=== PATIENT | female | born 1990 | race American Indian/Alaskan Native ===

== ENCOUNTER 2021-04-30 11:09 | Emergency (ER) | payer SELFPAY ==
[2021-04-30] MEDS ORDERED: IBUPROFEN 600 MG TAB PO ONE ×2 (13:25→16:18)
--- NOTE | 2021-04-30 13:25 | Emergency Department Report ---
ED Extremity Problem HPI - General Chief complaint: Extremity Injury, Lower Stated complaint: RT ANKLE INJURY Time Seen by Provider: 04/30/21 12:56 Source: patient Mode of arrival: Ambulatory Limitations: No Limitations - History of Present Illness Initial comments: 30-year-old female presents to the ER today complaining of right anterior ankle pain. Patient states that she woke up with the pain this morning. She reports associated mild swelling. She states that the pain is worse with movement of the ankle and with ambulation. 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 She states that she is never had any issues in the past with her ankle nor has had any surgeries. She states that she took a tylenol 500mg today but did not seem to help. She reports no apparent bruising, erythema, warmth, fever, chills, calf pain, chest pain, shortness of breath or any other symptoms at this time. MD Complaint: joint swelling, joint paint -: days(s) (1) - Related Data Previous Rx's Medication Instructions Recorded Last Taken Type Ibuprofen [Motrin 600 MG tab] 600 mg PO Q6HR PRN #30 tablet 04/30/21 Unknown Rx ED Review of Systems ROS: Stated complaint: RT ANKLE INJURY Other details as noted in HPI Comment: All other systems reviewed and negative Constitutional: denies: chills, fever Eyes: denies: eye pain, eye discharge, vision change ENT: denies: ear pain, throat pain, dental pain, hearing loss, epistaxis, congestion Respiratory: denies: cough, shortness of breath, SOB with exertion, SOB at rest, wheezing Cardiovascular: denies: chest pain, palpitations Gastrointestinal: denies: abdominal pain, nausea, diarrhea, constipation, hematemesis, hematochezia Musculoskeletal: joint swelling, arthralgia. denies: back pain Skin: denies: rash, lesions Neurological: denies: headache, weakness, numbness, paresthesias, confusion, abnormal gait, vertigo Psychiatric: denies: anxiety, depression, auditory hallucinations, visual hallucinations, homicidal thoughts, suicidal thoughts Hematological/Lymphatic: denies: easy bleeding, easy bruising ED Past Medical Hx - Past Medical History Previous Medical History?: Yes Additional medical history: denies - Surgical History Past Surgical History?: Yes Additional Surgical History: denies - Social History Smoking Status: Never Smoker Substance Use Type: Alcohol - Medications Home Medications: Home Medications Medication Instructions Recorded Confirmed Last Taken Type Ibuprofen [Motrin 600 MG tab] 600 mg PO Q6HR PRN #30 tablet 04/30/21 Unknown Rx ED Physical Exam - General Limitations: No Limitations General appearance: alert, in no apparent distress - Head Head exam: Present: atraumatic, normocephalic, normal inspection - Eye Eye exam: Present: normal appearance, PERRL, EOMI Pupils: Present: normal accommodation - Neck Neck exam: Present: normal inspection, full ROM - Respiratory Respiratory exam: Absent: respiratory distress - Cardiovascular Cardiovascular Exam: Present: regular rate - Expanded Lower Extremity Exam Right Ankle exam: Present: normal inspection, full ROM (She has full range of motion of the right ankle but there it is mildly painful), tenderness (Tenderness to palpation mainly anterior aspect of the right ankle). Absent: swelling, abrasion, laceration, ecchymosis, deformity, crepidus, dislocation, erythema Neuro vascular tendon exam: Present: no vascular compromise. Absent: pulse deficit, abnormal cap refill, motor deficit, sensory deficit Gait: Positive: observed and limited by pain - Back Exam Back exam: Present: normal inspection - Neurological Exam Neurological exam: Present: alert, oriented X3, CN II-XII intact - Psychiatric Psychiatric exam: Present: normal affect, normal mood ED Course Vital Signs 04/30/21 11:58 Temperature 98.5 F Pulse Rate 78 Respiratory 18 Rate Blood Pressure 111/67 O2 Sat by Pulse 99 Oximetry ED Medical Decision Making - Radiology Data Radiology results: report reviewed Patient: JAMA WHITEHEAD MR#: [id number] 35 : 1990 Acct:[id number] Age/Sex: 30 / F ADM Date: 04/30/21 Loc: ED Attending Dr: Ordering Physician: EMILY GARIBAY Date of Service: 04/30/21 Procedure(s): XR ankle 3+V RT Accession Number(s): [id number] cc: EMILY GARIBAY Fluoro Time In Minutes: XR ankle 3+V RT INDICATION / CLINICAL INFORMATION: anterior ankle pain. COMPARISON: None available. FINDINGS: BONES/JOINT(S): No acute fracture or subluxation. No significant degenerative changes. SOFT TISSUES: No significant abnormality. ADDITIONAL FINDINGS: None. Signer Name: Isiah Blanca MD Signed: 04/30/2021 3:33 PM Workstation Name: [id number] Transcribed By: ISABELA Dictated By: Isiah Blanca MD Electronically Authenticated By: Isiah Blanca MD Signed Date/Time: 04/30/211532 DD/ 31 TD/TT: - Medical Decision Making Patient presents to the ER today with nontraumatic right anterior ankle pain which she noticed when she woke up this morning. X-ray shows nothing acute. Physical exam does not suggest septic joint, cellulitis, joint effusion, acute arterial occlusion, DVT or any other emergent conditions warranting additional testing at this time. Discussed x-ray results with patient. Exact cause of her symptoms at this time unclear but recommend follow-up with automated logistics specialist. Candelario wrap was applied to her ankle and she was given crutches. Patient expressed understanding of instructions. Patient was stable at time of discharge. Critical care attestation.: If time is entered above; I have spent that time in minutes in the direct care of this critically ill patient, excluding procedure time. ED Disposition Clinical Impression: Right ankle pain Disposition: DC-01 TO HOME OR SELFCARE Is pt being admited?: No Does the pt Need Aspirin: No Condition: Stable Instructions: Joint Pain, [id number] Additional Instructions: Recommend that you use Candelario wrap as discussed. You can also use the crutches to help ambulate. Take the ibuprofen as prescribed as needed for pain. Recommend elevating your leg as often as possible for the next 2 to 3 days. You can apply ice to the ankle to help with any pain or swelling. Most importantly I recommend that you follow-up with automated logistics specialist if your pain persist for another week. Return to the ER if your symptoms changes or worsens in any way. Prescriptions: Ibuprofen [Motrin 600 MG tab] 600 mg PO Q6HR PRN #30 tablet PRN Reason: Pain Referrals: PEACE JAMIL MD [Staff Physician] - 3-5 Days Forms: Work/School Release Form(ED) Time of Disposition: 15:41
--- NOTE | 2021-04-30 15:37 | XRay Report ---
XR ankle 3+V RT INDICATION / CLINICAL INFORMATION: anterior ankle pain. COMPARISON: None available. FINDINGS: BONES/JOINT(S): No acute fracture or subluxation. No significant degenerative changes. SOFT TISSUES: No significant abnormality. ADDITIONAL FINDINGS: None. Signer Name: Isiah Blanca MD Signed: 04/30/2021 3:33 PM Workstation Name: [id number]
[2021-04-30 16:40] VITALS: BP 134/79
== END 2021-04-30 16:39 | disposition home or self-care (01) ==
LOC: ED 11:09
DX: M25.571 Pain in right ankle and joints of right foot (principal); Z79.899 Other long term (current) drug therapy